=== PATIENT | female | born 1965 | race Hispanic/Latino ===

== ENCOUNTER 2017-07-05 20:27 | Inpatient (IN) | payer OTHER ==
[2017-07-05] MEDS ORDERED: FENTANYL CITR 100 MCG/2 ML ONE (21:01)
[2017-07-05] MEDS ORDERED: ONDANSETRON 4 MG/2 ML VIAL ONE (21:01)
[2017-07-05] MEDS ORDERED: PANTOPRAZOLE 40 MG INJ ONE (21:02)
[2017-07-05] MEDS ORDERED: NA CHLORIDE 0.9% 1,000 ML ONE (21:02)
[2017-07-05 21:27] LABS: Absolute Lymphocytes (CBC) 3.1 K/uL (0.7-4.9); Absolute Monocytes 0.7 K/uL (0.1-1.3); Absolute Neutrophil 7.5 K/uL (1.8-8.0); Basophils % 0.9 % (0-1.3); Eosinophils % 3.9 % (0-4.4); Hematocrit 28.9 % (36.0-45.0); Lymphocytes % 26.2 % (15.3-44.8); MCH 27.1 pg (27.0-35.0); MCV 81.8 fL (80-100); Monocytes % 5.9 % (3.3-12.3); RBC Red Blood Cell Count 3.53 M/uL (3.86-4.86)
[2017-07-05 21:31] LABS: Protime INR 1.05
[2017-07-05 21:32] LABS: Barbiturates NEGATIVE; Benzodiazepines NEGATIVE; Cocaine NEGATIVE; METHAMPHETAM NEGATIVE; Opiates NEGATIVE
--- NOTE | 2017-07-05 21:40 | RAD REPORT ---
EXAM DESCRIPTION: Ashley Single View07/05/2017 9:14 pm CLINICAL HISTORY: Abdominal pain COMPARISON: January 2017 FINDINGS: The lungs appear clear of acute infiltrate. The heart is normal size IMPRESSION: No acute abnormalities displayed
[2017-07-05 21:54] LABS: Bicarbonate 26 mEq/L (21-31); Glucose Level 108 mg/dL (65-120); Lipase 19 U/L (22-51); Potassium 3.8 mEq/L (3.6-5.0); Sodium Level 138 mEq/L (135-145)
[2017-07-05 22:00] LABS: ALT/SGPT 10 IU/L (10-60); AST/SGOT 18 IU/L (10-42); Albumin 3.8 g/dL (3.2-5.5); Alkaline Phosphatase 61 IU/L (42-121); BUN Blood Urea Nitrogen 13 mg/dL (6-20); Bilirubin Direct < 0.1 mg/dL (0-0.2); Bilirubin Total 0.2 mg/dL (0.3-1.2); Creatine Phosphokinase 62 IU/L (22-269); Magnesium 1.9 mg/dL (1.8-2.5)
[2017-07-05 22:02] LABS: CKMB Creatine Kinase MB 0.5 ng/ml (0.3-4.0)
--- NOTE | 2017-07-05 22:28 | EDPHYS ---
Physician Documentation [facility] Name: Heidi Pierre Age: 52 yrs Sex: Female : 1965 Arrival Date: 07/05/2017 Time: 20:30 Bed 3 Private MD: ED Physician Diogo Tony HPI: 07/05 20:56 This 52 yrs old Female presents to ER via Ambulatory with complaints of ochoa Abdominal Pain, Diarrhea. 20:56 The patient presents to the emergency department with diarrhea, that is continuous, ochoa abdominal pain, of the right lower quadrant and left lower quadrant. Onset: The symptoms/episode began/occurred 3 day(s) ago. Possible causes: unknown. The symptoms are aggravated by movement, pressure, The symptoms are alleviated by remaining still. Associated signs and symptoms: The patient has no apparent associated signs or symptoms. Severity of symptoms: At their worst the symptoms were mild moderate in the emergency department the symptoms are unchanged. The patient has not experienced similar symptoms in the past. 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 - Social history:: Smoking status: Patient uses tobacco products, smokes one-half pack cigarettes per day. - Family history:: not pertinent. ROS: 20:56 Constitutional: Negative for fever, chills, and weight loss, Eyes: Negative for injury, ochoa pain, redness, and discharge, ENT: Negative for injury, pain, and discharge, Neck: Negative for injury, pain, and swelling, Cardiovascular: Negative for chest pain, palpitations, and edema, Respiratory: Negative for shortness of breath, cough, wheezing, and pleuritic chest pain, Back: Negative for injury and pain, : Negative for injury, bleeding, discharge, and swelling, MS/Extremity: Negative for injury and deformity, Skin: Negative for injury, rash, and discoloration, Neuro: Negative for headache, weakness, numbness, tingling, and seizure, Psych: Negative for depression, anxiety, suicide ideation, homicidal ideation, and hallucinations, Allergy/Immunology: Negative for hives, rash, and allergies, Endocrine: Negative for neck swelling, polydipsia, polyuria, polyphagia, and marked weight changes, Hematologic/Lymphatic: Negative for swollen nodes, abnormal bleeding, and unusual bruising. 20:56 Respiratory: Positive for 20:56 Abdomen/GI: Positive for abdominal pain, diarrhea, of the right lower quadrant and left lower quadrant. Exam: 20:56 Constitutional: This is a well developed, well nourished patient who is awake, alert, ochoa and in no acute distress. Head/Face: Normocephalic, atraumatic. Eyes: Pupils equal round and reactive to light, extra-ocular motions intact. Lids and lashes normal. Conjunctiva and sclera are non-icteric and not injected. Cornea within normal limits. Periorbital areas with no swelling, redness, or edema. ENT: Nares patent. No nasal discharge, no septal abnormalities noted. Tympanic membranes are normal and external auditory canals are clear. Oropharynx with no redness, swelling, or masses, exudates, or evidence of obstruction, uvula midline. Mucous membranes moist. Neck: Trachea midline, no thyromegaly or masses palpated, and no cervical lymphadenopathy. Supple, full range of motion without nuchal rigidity, or vertebral point tenderness. No Meningismus. Chest/axilla: Normal chest wall appearance and motion. Nontender with no deformity. No lesions are appreciated. Cardiovascular: Regular rate and rhythm with a normal S1 and S2. No gallops, murmurs, or rubs. Normal PMI, no JVD. No pulse deficits. Respiratory: Lungs have equal breath sounds bilaterally, clear to auscultation and percussion. No rales, rhonchi or wheezes noted. No increased work of breathing, no retractions or nasal flaring. Back: No spinal tenderness. No costovertebral tenderness. Full range of motion. Female : Normal external genitalia. Skin: Warm, dry with normal turgor. Normal color with no rashes, no lesions, and no evidence of cellulitis. MS/ Extremity: Pulses equal, no cyanosis. Neurovascular intact. Full, normal range of motion. Neuro: Awake and alert, GCS 15, oriented to person, place, time, and situation. Cranial nerves II-XII grossly intact. Motor strength 5/5 in all extremities. Sensory grossly intact. Cerebellar exam normal. Normal gait. Psych: Awake, alert, with orientation to person, place and time. Behavior, mood, and affect are within normal limits. 20:56 Abdomen/GI: Inspection: abdomen appears normal, Bowel sounds: normal, Palpation: moderate abdominal tenderness, in the right lower quadrant and left lower quadrant, Liver: no appreciated palpable abnormalities, Hernia: not appreciated. 22:55 Abdomen/GI: Rectal exam: rectal tone normal, Stool: guaiac positive, hemorrhoid(s), are ochoa not appreciated, mass, is not appreciated, swelling, is not appreciated, tenderness, is not appreciated, the exam is chaperoned by the nurse. Vital Signs: 20:35 BP 139 / 87; Pulse 137; Resp 19; Temp 98.5; Pulse Ox 98% on R/A; Weight 56.7 kg; Height aj 5 ft. 3 in. (160.02 cm); 21:32 BP 135 / 94; Pulse 101; Resp 16; Pulse Ox 99% on R/A; tl2 22:57 BP 140 / 76; Pulse 102; Resp 17; Pulse Ox 100% ; tl1 07/06 01:01 BP 127 / 75; Pulse 105; Resp 17; Temp 98.6; Pulse Ox 99% on R/A; Pain 0/10; tl1 07/05 20:35 Body Mass Index 22.14 (56.70 kg, 160.02 cm) aj [facility]: 07/05 20:46 Patient medically screened. [facility] 20:56 Data reviewed: vital signs, nurses notes, lab test result(s), EKG, radiologic studies, [facility] CT scan, plain films. 07/05 20:55 Order name: Basic Metabolic Panel; Complete Time: 22:16 [facility] 07/05 20:55 Order name: BNP; Complete Time: 22:16 [facility] 07/05 20:55 Order name: CBC with Diff; Complete Time: 22:16 [facility] 07/05 20:55 Order name: Ckmb; Complete Time: 22:16 [facility] 07/05 20:55 Order name: CPK; Complete Time: 22:16 [facility] 07/05 20:55 Order name: LFT's; Complete Time: 22:16 [facility] 07/05 20:55 Order name: Magnesium; Complete Time: 22:16 [facility] 07/05 20:55 Order name: PT-INR; Complete Time: 22:16 [facility] 07/05 20:55 Order name: Ptt, Activated; Complete Time: 22:16 [facility] 07/05 20:55 Order name: Troponin (emerg Dept Use Only); Complete Time: 22:16 [facility] 07/05 20:55 Order name: Lipase; Complete Time: 22:16 [facility] 07/05 20:55 Order name: Type And Screen; Complete Time: 22:53 [facility] 07/05 20:56 Order name: Urine Culture [facility] 07/05 20:56 Order name: UDS; Complete Time: 22:16 [facility] 07/05 20:55 Order name: Urine Test (obtain specimen); Complete Time: 21:00 [facility] 07/05 20:55 Order name: XRAY Chest (1 view); Complete Time: 22:16 [facility] 07/05 20:55 Order name: EKG; Complete Time: 20:56 [facility] 07/05 20:55 Order name: CT Abd/Pelvis - W/Contrast [facility] 07/05 21:01 Order name: Urine Dipstick--Ancillary (enter results) [facility] 07/05 21:01 Order name: Urine --Ancillary (enter results) [facility] 07/05 22:32 Order name: CONS Physician Consult [facility] 07/05 22:32 Order name: CONS Physician Consult [facility] 07/05 20:55 Order name: Cardiac monitoring; Complete Time: 21:11 [facility] 07/05 20:55 Order name: EKG - Nurse/Tech; Complete Time: 21:25 [facility] 07/05 20:55 Order name: IV Saline Lock; Complete Time: 21:11 [facility] 07/05 20:55 Order name: Labs collected and sent; Complete Time: 21:11 [facility] 07/05 20:55 Order name: O2 Per Protocol; Complete Time: 21:12 [facility] 07/05 20:55 Order name: O2 Sat Monitoring; Complete Time: 21:12 [facility] 07/05 20:55 Order name: Urine Dipstick-Ancillary (obtain specimen); Complete Time: 21:00 [facility] Administered Medications: 21:10 Drug: NS 0.9% 1000 ml Route: IV; Rate: 1 bolus; Site: right antecubital; tl2 07/06 00:20 Follow up: IV Status: Completed infusion tl1 07/05 21:10 Drug: fentaNYL (PF) 25 mcg Route: IVP; Site: right antecubital; tl2 07/06 01:30 Follow up: Response: No adverse reaction; Marked relief of symptoms; Pain is decreased tl1 07/05 21:10 Drug: Zofran 4 mg Route: IVP; Site: right antecubital; tl2 23:31 Follow up: Response: No adverse reaction tl2 21:10 Drug: ProTONIX 40 mg Route: IVP; Site: right antecubital; tl2 23:31 Follow up: Response: No adverse reaction tl2 22:46 Drug: Flagyl 500 mg Volume: 100 ml; Route: IVPB; Rate: 200 ml/hr; Infused Over: 30 tl1 mins; Site: right antecubital; 23:30 Follow up: IV Status: Completed infusion; IV Intake: 100ml tl2 23:29 Drug: fentaNYL (PF) 25 mcg Route: IVP; Site: right antecubital; tl2 07/06 00:20 Follow up: Response: No adverse reaction; Marked relief of symptoms; Pain is decreased tl1 07/05 23:30 Drug: Cipro 400 mg Volume: 200 ml; Route: IVPB; Infused Over: 60 mins; Site: right tl2 antecubital; 07/06 01:00 Follow up: IV Status: Completed infusion tl1 01:02 Follow up: IV Status: Completed infusion tl2 07/05 23:30 Drug: Benadryl 25 mg Route: IVP; Site: right antecubital; tl2 07/06 00:21 Follow up: Response: No adverse reaction; Marked relief of symptoms tl1 Disposition: 07/05/17 22:27 Hospitalization ordered by Su Vo for Inpatient Admission. Preliminary diagnosis are Abdominal tenderness, Gastrointestinal hemorrhage, unspecified, Anemia, unspecified, Left sided colitis - sigmoid, Duodenitis. - Bed requested for Telemetry/MedSurg (Inpatient). - Status is Inpatient Admission. tl1 - Condition is Stable. - Problem is new. - Symptoms have improved. UTI on Admission? No Signatures: Dispatcher [employer] EDBobbi Moyer RN RN kl Myers, Amanda, RN RN aj Anderson, Corey, MD MD cha Lasagna, Tonya, RN RN tl1 Sanford, Sana, RN RN tl2
--- NOTE | 2017-07-05 22:28 | ER ---
Nurse's Notes [facility] Name: Heidi Pierre Age: 52 yrs Sex: Female : 1965 Arrival Date: 07/05/2017 Time: 20:30 Bed 3 Private MD: Diagnosis: Abdominal tenderness;Gastrointestinal hemorrhage, unspecified;Anemia, unspecified;Left sided colitis-sigmoid;Duodenitis Presentation: 07/05 20:31 Presenting complaint: Patient states: Watery black diarrhea since yesterday. Seen by aj PCP for epigastric pain recently. U/S, CT scan, and lab work done at [facility]. Reports taking dexamethasone Saturday night. Transition of care: patient was not received from another setting of care. Onset of symptoms was July 04, 2017. Initial Sepsis Screen: Does the patient meet any 2 criteria? No. Patient's initial sepsis screen is negative. Does the patient have a suspected source of infection? No. Patient's initial sepsis screen is negative. Care prior to arrival: None. 20:31 Method Of Arrival: Ambulatory 20:31 Acuity: ARY 3 aj Triage Assessment: 20:35 General: Appears in no apparent distress. comfortable, Behavior is calm, cooperative, aj appropriate for age. Pain: Complains of pain in epigastric area. Neuro: Level of Consciousness is awake, alert, obeys commands, Oriented to person, place, time, situation, Appropriate for age. Respiratory: Airway is patent Respiratory effort is even, unlabored, Respiratory pattern is regular, symmetrical. GI: Abdomen is flat, non-distended, Reports diarrhea, epigastric pain. Derm: Skin is intact, is healthy with good turgor, Skin is pink, warm \T\ dry. normal. 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 - Social history:: Smoking status: Patient uses tobacco products, smokes one-half pack cigarettes per day. - Family history:: not pertinent. Screenin/21 01:02 Abuse screen: Denies threats or abuse. Denies injuries from another. Nutritional tl1 screening: No deficits noted. Tuberculosis screening: No symptoms or risk factors identified. Fall Risk IV access (20 points). Assessment: 07/05 21:34 Reassessment: Patient appears in no apparent distress at this time. Patient and/or tl2 family updated on plan of care and expected duration. Pain level reassessed. Patient is alert, oriented x 3, equal unlabored respirations, skin warm/dry/pink. Pt finished contrast , CT notified. 21:34 General: Appears in no apparent distress. Behavior is calm, cooperative, appropriate tl1 for age. Pain: Complains of pain in left lower quadrant and right lower quadrant and abdomen and epigastric area Pain currently is 6 out of 10 on a pain scale. Quality of pain is described as crampy. Neuro: Level of Consciousness is awake, alert, obeys commands. Cardiovascular: Denies chest pain. Respiratory: Airway is patent Trachea midline Respiratory effort is even, unlabored, Breath sounds are clear bilaterally. GI: Abdomen is non-distended, Bowel sounds present X 4 quads. Abdomen is tender to palpation X 4 quads. Reports lower abdominal pain, upper abdominal pain, diarrhea, gaseousness, nausea. : No signs and/or symptoms were reported regarding the genitourinary system. EENT: No signs and/or symptoms were reported regarding the EENT system. Derm: No signs and/or symptoms reported regarding the dermatologic system. Vital Signs: 20:35 BP 139 / 87; Pulse 137; Resp 19; Temp 98.5; Pulse Ox 98% on R/A; Weight 56.7 kg; Height aj 5 ft. 3 in. (160.02 cm); 21:32 BP 135 / 94; Pulse 101; Resp 16; Pulse Ox 99% on R/A; tl2 22:57 BP 140 / 76; Pulse 102; Resp 17; Pulse Ox 100% ; tl1 07/06 01:01 BP 127 / 75; Pulse 105; Resp 17; Temp 98.6; Pulse Ox 99% on R/A; Pain 0/10; tl1 07/05 20:35 Body Mass Index 22.14 (56.70 kg, 160.02 cm) ED Course: 07/05 20:30 Patient arrived in ED. es 20:34 Triage completed. aj 20:35 Arm band placed on left wrist. Patient placed in an exam room. aj 20:35 Patient has correct armband on for positive identification. Placed in gown. Bed in low tl1 position. Call light in reach. Side rails up X 1. Adult w/ patient. 20:45 Diogo Tony MD is Attending Physician. ochoa 20:50 Urine collected: clean catch specimen, clear. cb2 21:05 No provider procedures requiring assistance completed. Inserted saline lock: 20 gauge tl1 in right antecubital area, using aseptic technique. Blood collected. 21:13 XRAY Chest (1 view) In Process Unspecified. EDMS 21:13 X-ray completed. Portable x-ray completed in exam room. Patient tolerated procedure kp1 well. 21:25 EKG done, by ED staff, reviewed by Diogo Tony MD. cb2 21:34 Katy Savage RN is Primary Nurse. tl1 22:26 Su Vo MD is Hospitalizing Provider. ochoa 22:[address] via wheelchair. nj 22:32 CT completed. Patient tolerated procedure well. Patient moved back from CT. nj 22:35 CT Abd/Pelvis - W/Contrast In Process Unspecified. EDMS 22:57 Served as a library information technician during rectal exam. tl1 07/06 01:06 Patient admitted, IV remains in place. tl1 Administered Medications: 07/05 21:10 Drug: NS 0.9% 1000 ml Route: IV; Rate: 1 bolus; Site: right antecubital; tl2 07/06 00:20 Follow up: IV Status: Completed infusion tl1 07/05 21:10 Drug: fentaNYL (PF) 25 mcg Route: IVP; Site: right antecubital; tl2 07/06 01:30 Follow up: Response: No adverse reaction; Marked relief of symptoms; Pain is decreased tl1 07/05 21:10 Drug: Zofran 4 mg Route: IVP; Site: right antecubital; tl2 23:31 Follow up: Response: No adverse reaction tl2 21:10 Drug: ProTONIX 40 mg Route: IVP; Site: right antecubital; tl2 23:31 Follow up: Response: No adverse reaction tl2 22:46 Drug: Flagyl 500 mg Volume: 100 ml; Route: IVPB; Rate: 200 ml/hr; Infused Over: 30 tl1 mins; Site: right antecubital; 23:30 Follow up: IV Status: Completed infusion; IV Intake: 100ml tl2 23:29 Drug: fentaNYL (PF) 25 mcg Route: IVP; Site: right antecubital; tl2 07/06 00:20 Follow up: Response: No adverse reaction; Marked relief of symptoms; Pain is decreased tl1 07/05 23:30 Drug: Cipro 400 mg Volume: 200 ml; Route: IVPB; Infused Over: 60 mins; Site: right tl2 antecubital; 07/06 01:00 Follow up: IV Status: Completed infusion tl1 01:02 Follow up: IV Status: Completed infusion tl2 07/05 23:30 Drug: Benadryl 25 mg Route: IVP; Site: right antecubital; tl2 07/06 00:21 Follow up: Response: No adverse reaction; Marked relief of symptoms tl1 Intake: 07/05 23:30 IV: 100ml; Total: 100ml. tl2 Outcome: 22:27 Decision to Hospitalize by Provider. ochoa 07/06 01:03 Admitted to Med/surg accompanied by tech, via wheelchair, with chart, Report called to tl1 Breana REYES Condition: improved Instructed on the need for admit. 01:31 Patient left the ED. tl1 Signatures: Dispatcher [employer] Megan Carlos RN RN aj Anderson, Corey, MD MD cha Salyer, Edna es Lasagna, Tonya, RN RN tl1 Sana Sanford RN RN tl2 Priyank Obrien Christian cb2 Poole, Kathy [facility] Corrections: (The following items were deleted from the chart) 07/05 20:37 20:31 Presenting complaint: Patient states: Watery black diarrhea since yesterday. Seen aj by PCP for epigastric pain recently. U/S, CT scan, and lab work done at [facility] aj
[2017-07-05] MEDS ORDERED: Ciprofloxacin 200mg IV 200 MG/100 ML IV.SOLN. IV ONE (22:42)
[2017-07-05] MEDS ORDERED: METRONIDAZOLE 500mg IVPB 500 MG/100 ML BAG IV ONE (22:42)
[2017-07-05] MEDS ORDERED: DIPHENHYDRAMINE 50 MG/ML VIAL ONE (23:28)
[2017-07-05 23:45] LABS: Urine Blood 1+ (NEG); Urine Glucose NEGATIVE (NEG); Urine Protein NEGATIVE (NEG); Urine pH 5.5 (5.0-7.0)
--- NOTE | 2017-07-06 00:19 | P.HP ---
Certification for Inpatient Patient admitted to: Inpatient With expected LOS: >2 Midnights Practitioner: I am a practitioner with admitting privileges, knowledge of patient current condition, hospital course, and medical plan of care. Services: Services provided to patient in accordance with Admission requirements found in Title 42 Section 412.3 of the Code of Federal Regulations Patient History Date of Service: 07/06/17 Reason for admission: colitis History of Present Illness: Ms Pierre is a 52 years old woman with history of colon cancer S/P colon resection followed up with 6 rounds of chemotherapy, DM II, HTN, who start about 6 weeks ago with abdominal pain. The pain is comes and go, localized on RLQ, associated with nausea but no vomiting. She came today since start having black watery diarrhea. She denied dizziness, SOB or chest pain. Lab work remarkable for elevated WBC count 11.8K, Hgb 9.6, similar to previous one 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 She has no history of fever or chills. Allergies meperidine HCl [From Demerol] Allergy (Verified 11/11/14 03:34) Unknown nitrofurantoin [From Macrobid] Allergy (Verified 11/11/14 03:34) Unknown nitrofurantoin macrocrystal [From Macrobid] Allergy (Verified 11/11/14 03:34) Unknown sulfamethoxazole [From Bactrim] Allergy (Verified 11/11/14 03:34) Unknown trimethoprim [From Bactrim] Allergy (Verified 11/11/14 03:34) Unknown Home Medications: Lisinopril [Prinivil*] 20 mg PO DAILY 11/11/14 Pravastatin [Pravachol*] 40 mg PO DAILY 11/11/14 - Past Medical/Surgical History Diabetic: Yes -: HTN -: HYPERLIPIDEMIA -: SBO -: NIDDM -: HYSTERCTOMY -: CYST REMOVED FROM BACK -: LARGE INTESTINE RESECTION - Family History Sister -: Diabetes Mother -: Hypertension - Social History Smoking Status: Current every day smoker Counseled patient to stop smoking for: less than 10 minutes Smoking therapy provided: Yes Patient receptive to therapy: No Alcohol use: No CD- Drugs: No Caffeine use: No Place of Residence: Home Review of Systems 10-point ROS is otherwise unremarkable Physical Examination - Physical Exam General: Alert, In no apparent distress HEENT: Atraumatic, PERRLA, Mucous membr. moist/pink, EOMI, Sclerae nonicteric Neck: Supple, 2+ carotid pulse no bruit, No LAD, Without JVD or thyroid abnormality Respiratory: Clear to auscultation bilaterally, Normal air movement Cardiovascular: Regular rate/rhythm, Normal S1 S2 Gastrointestinal: Normal bowel sounds, Tenderness (diffuse but mostly RLQ) Musculoskeletal: No tenderness Integumentary: No rashes Neurological: Normal speech, Normal strength at 5/5 x4 extr, Normal tone, Normal affect Lymphatics: No axilla or inguinal lymphadenopathy - Studies Laboratory Data (last 24 hrs) 07/05/17 20:58: PT 12.4, INR 1.05, APTT 25.7 07/05/17 20:58: WBC 11.8 H, Hgb 9.6 L, Hct 28.9 L, Plt Count 297 07/05/17 20:58: B-Natriuretic Peptide < 10 07/05/17 20:58: Sodium 138, Potassium 3.8, BUN 13, Creatinine 0.76, Glucose 108 , Magnesium 1.9, Total Bilirubin 0.2 L, AST 18, ALT 10, Alkaline Phosphatase 61 , Lipase 19 L Assessment and Plan - Problems (Diagnosis) (1) Colitis Current Visit: Yes Status: Acute (2) History of colon cancer Current Visit: Yes Status: Acute (3) Diabetes mellitus Current Visit: Yes Status: Acute Qualifiers: Diabetes mellitus type: type 2 Diabetes mellitus nursing home insulin use: without 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 CT abd/pelvis shows metastatic disease. Will start empiric antibiotic treatment, keep her NPO , start IV fluids, consult Dr Kilgore and Dr Osorio. - Advance Directives Does patient have a Living Will: No Does patient have a Durable POA for Healthcare: No - Code Status/Comfort Care Code Status Assessed: Yes Code Status: Full Code
[2017-07-06] MEDS: INSULIN -REGULAR HUMAN 50 UNIT/0.5 ML ML SQ SCH ×4 (01:32→17:19)
[2017-07-06] MEDS ORDERED: ONDANSETRON 4 MG/2 ML VIAL IV PRN (01:32)
[2017-07-06] MEDS ORDERED: SODIUM CHLORIDE 0.9% 10ML INJ IV PRN (01:32)
[2017-07-06 01:41] VITALS: BMI 22.1
[2017-07-06] MEDS: NA CHLORIDE 0.9% 1,000 ML IV SCH ×3 (02:58→18:55)
[2017-07-06] MEDS ORDERED: PIPER/TAZO/NS 3.375gm 3.375 GM/100 ML BAG ONE (02:59)
[2017-07-06] MEDS: PIPER/TAZO/NS 3.375gm 3.375 GM/100 ML BAG IVPB SCH ×4 (03:32→19:42)
[2017-07-06] MEDS ORDERED: FENTANYL CITR 100 MCG/2 ML IV ONE (05:42)
[2017-07-06] MEDS ORDERED: KCL 20 MEQ/100 mL IVPB 20 MEQ/100 ML BAG IV SCH (06:00)
--- NOTE | 2017-07-06 07:16 | EKG ---
Test Date: 2017-07-05 Test Time: 21:19:22 Mushroom Grower: BRAYAN MEASUREMENT RESULTS: Intervals: Rate: 101 ME: 140 QRSD: 82 QT: 354 QTc: 459 Wilson: P: 59 ME: 140 QRS: 64 T: 62 INTERPRETIVE STATEMENTS: Sinus tachycardia Otherwise normal ECG Compared to ECG 01/08/2013 14:06:28 Sinus rhythm no longer present Sinus arrhythmia no longer present Electronically Signed On 07-06-17 07:15:44 CDT by Jet Perez
[2017-07-06] MEDS ORDERED: Morphine 2 MG/2 ML SYR IV PRN (08:59)
[2017-07-06] MEDS: PANTOPRAZOLE 40 MG INJ IVP SCH (09:08)
[2017-07-06] MEDS ORDERED: GLUCAGON 1 MG/VIAL IM PRN (09:09)
[2017-07-06] MEDS ORDERED: D50W 25 GM/50 ML SYRINGE IV PRN (09:09)
--- NOTE | 2017-07-06 09:27 | RAD REPORT ---
EXAM DESCRIPTION: CT - Abdomen Pelvis W Contrast - 07/06/2017 8:57 am CLINICAL HISTORY: Abdominal pain. Colon cancer with diarrhea COMPARISON: May 2016 TECHNIQUE: Computed axial tomography of the abdomen and pelvis was obtained. 100 cc Isovue-300 is ad ministered intravenously. Oral contrast was given. A preliminary report was generated by [facility] in reviewed prior to this dictation All CT scans are performed using dose optimization technique as appropriate and may include automated exposure control or mA/KV adjustment according to patient size. FINDINGS: Two hypodense lesions are suspected within the liver with the largest measuring 5 millimeters. Retrocrural lymph node measures 4.6 by 4.1 centimeters. Smaller retrocrural lymph node is present. Ce liac axis lymph nodes are present with the largest measuring 3.4 x 2.7 centimeters. Portacaval, peria ortic, mesenteric lymph nodes are present as well. Lymph nodes compress the portal vein. 12 millimeter tumor thrombus is present within the main portal vein. Spleen, pancreas, right adrenal and kidneys are unremarkable 5 centimeter left adrenal mass is present. Hemicolectomy has been performed. A bowel obstruction is not present. A 2.2 centimeter mass abuts jejunum within the upper anterior left pelvis. A small amount of ascites is present. Two fatty structures within the fat of the lower right abdomen and upper right pelvis are mildly dimi nished in size compatible with old infarctions IMPRESSION: Marked upper abdominal lymphadenopathy. Some of the lymph nodes are necrotic. 5 centimeter left adrenal mass. 2.2 centimeter mass abutting the jejunum. 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
--- NOTE | 2017-07-06 14:22 | CON ---
Date of Consultation: 07/06/2017 Reason For Consultation: Abdominal pain. Bloody diarrhea. Brief History Of Present Illness: The patient is a 52-year-old female who presents with a 3-week his tory of intermittent bloody diarrhea and abdominal pain in the epigastric area radiating through to h er back. She states approximately 3 weeks ago she went to [facility] with complaints of abdominal pain. She has a history significant for Grove syndrome/HNPCC. She is unsure what subtype with a hi story of diagnosis of cancer in her 30s and had a partial colectomy at that time. She ultimately had a resection at that time and states that back in February of this last year she had a recurrence of colon cancer. She ultimately had another resection at that time and received rounds of chemotherapy she states ending in February as well, but she is unsure of what type of chemotherapy she was receivi ng. As stated above she had an episode of bloody diarrhea approximately 3 weeks ago, went to the [facility] ER, had a CT scan by her report and states that there were no findings at that time. She was s ent home with followup with her oncologist/surgeon at [facility]. She ultimately saw and had a w orkup initiated, which she states included additional imaging and blood work. She is unsure of the d iagnosis other than saying she has enlarged lymph nodes that may be cancer. She went to [facility] on approximately a week later for additional imaging with concerns of pancreatic cancer and was told that she simply had enlarged lymph nodes by her understanding, although none of these reports are kris ilable and the patient has admittedly poor insight into her medical history. She further states that she continued to have episodes of intermittent dark tarry stools and liquidy bloody melenic diarrhea with intermixed water. She states that she had another episode last week and went to [facility] once again and was discharged at that time without admission. She now presents to the emergency peter here with the above stated complaints and another round of bloody diarrhea, melenic stool intermixe d with watery diarrhea beginning on of this last week. She has had 3-4 episodes yesterday a nd came into the emergency room with the above-stated complaints. Past Medical History: Significant for Grove syndrome, hypertension, hyperlipidemia, small bowel obst ruction, diabetes. Surgical History: Includes hysterectomy, cyst removed from her back, 2 colectomies. She is unsure w hat portions of her colon, but thought she had no colon remaining, one when she was in her 30s and on e as of February of last year. Allergies: INCLUDE MEPERIDINE, MACROBID, BACTRIM/SULFA. Home Medications: Include Prinivil and Pravachol as well as gabapentin and Ultram. Her sister had d iabetes. Mother had hypertension. Social History: Smoking, she is a pack per day smoker. She smokes marijuana occasionally. Denies a ny other recreational drug use. Review of Systems: A 10-point review of systems other than HPI, she denies. Physical Examination: Vital Signs: At the time of examination her BMI is 22.2. Her vital signs at time of my examination, blood pressure is 104/57, pulse is 102, respiratory rate 16, temperature 98.9. General: She is awake, alert, and oriented. Psychiatric: She is appropriate and conversive but has admittedly poor insight into her medical hist ory. HEENT: She is normocephalic. Her sclerae are anicteric. Her mucous membranes are moist. Her oroph arynx is clear. Neck: Supple. No JVD. Chest: Normal expansion and excursion. Cardiovascular: Regular rate and rhythm. Pulmonary: Clear to auscultation bilaterally. Abdomen: Soft, nontender, nondistended. Well-healed scars are evident. Pelvis is stable. Skin: Warm and dry. Extremities: No clubbing, cyanosis, or edema. Laboratory Data: Reveals a white blood cell count of 11.8, hemoglobin 9.6, hematocrit of 28.9, plate let count is 297. Her PT 12.4, INR 1.05, PTT 25.7. Sodium 138, potassium 3.8, chloride 104, carbon dioxide 26, BUN 13, creatinine 0.7, glucose is 108, magnesium 1.9, total bilirubin 0.2, direct compon ent less than 0.1, AST 18, ALT 10, alkaline phosphatase 61. Her CK-MB was less than 0.03. Her lipas e is 19. Her UA was essentially negative with the exception of 1+ leukocyte esterase. camron t negative. Her drug screen was negative as well. She had a CT scan performed of the abdomen and pe lvis, which was officially read as 2 hypodense lesions suspected within the liver, the largest measur ing 5 mm, retrocrural lymph nodes measuring 4.6 x 4 cm. Small retrocrural lymph node is present. Th e celiac axis nodes are present with the largest measuring 3.4 x 2.7 cm. Portacaval periaortic mesen teric lymph nodes are present as well. Lymph node compresses the portal vein, 12 mm tumor thrombus i s present within the main portal vein. Spleen, pancreas, right adrenal, and kidneys are unremarkable . However, there is a 5 cm left adrenal mass present. Hemicolectomies have been performed. Bowel o bstruction not present. 2.2 cm mass abuts the jejunum within the upper anterior pelvis. Small amoun t of ascites present. Two fatty structures within the fat of the lower right abdomen and upper right pelvis are mildly diminished in size compared with old infarctions. Official impression is marked up per abdominal lymphadenopathy. Some of the lymph nodes are necrotic. 5 cm left adrenal mass, 2.2 cm mass abutting the jejunum. These findings may indicate metastatic disease or lymphoma. 1.2 cm fernando l venous thrombosis. Two subcentimeter hypodense lesions within the liver may represent additional n eoplasm. Assessment And Plan: This is a 52-year-old woman who comes in with a complicated history of Grove sy ndrome, who has signs and symptoms of possible neoplastic process. I am unsure if this is a recurren ce or possible lymphoma. However, given her history of bloody bowel movements, we will check her hem oglobin and do serial exams. Should she be hemodynamically stable and not require blood transfusions and have no evidence of blood-loss anemia, in the future she would likely need to be on anticoagulat ion for this portal venous thrombosis given her clinical picture. In addition, I would recommend a m etastatic workup in her immediate future. Continue medical management. I will follow along with you. Thank you for this interesting consult. KYRA/BETTY Voice ID: [id number] Report ID: [id number]
[2017-07-06] MEDS: Morphine 2 MG/2 ML SYR IV PRN ×3 (15:27→23:11)
[2017-07-06] MEDS: GABAPENTIN 300 MG PO SCH (21:00)
[2017-07-07] MEDS: PIPER/TAZO/NS 3.375gm 3.375 GM/100 ML BAG IVPB SCH ×4 (00:46→17:13)
[2017-07-07] MEDS: Morphine 2 MG/2 ML SYR IV PRN ×5 (04:13→20:02)
[2017-07-07] MEDS: NA CHLORIDE 0.9% 1,000 ML IV SCH ×2 (04:16→08:27)
[2017-07-07 05:03] LABS: Absolute Lymphocytes (CBC) 1.5 K/uL (0.7-4.9); Absolute Monocytes 0.5 K/uL (0.1-1.3); Absolute Neutrophil 4.7 K/uL (1.8-8.0); Basophils % 0.8 % (0-1.3); Eosinophils % 4.7 % (0-4.4); Hematocrit 26.1 % (36.0-45.0); Lymphocytes % 21.7 % (15.3-44.8); MPV 7.8 fL (7.6-11.3); Monocytes % 7.2 % (3.3-12.3); RBC Red Blood Cell Count 3.18 M/uL (3.86-4.86)
[2017-07-07 05:21] LABS: Potassium 3.9 mEq/L (3.6-5.0)
[2017-07-07] MEDS: INSULIN -REGULAR HUMAN 50 UNIT/0.5 ML ML SQ SCH ×4 (06:00→18:00)
[2017-07-07] MEDS ORDERED: KCL 20 MEQ/100 mL IVPB 20 MEQ/100 ML BAG IV SCH (07:00)
[2017-07-07] MEDS: PANTOPRAZOLE 40 MG INJ IVP SCH (08:23)
[2017-07-07] MEDS: D5 0.45 NS 1,000 ML IV SCH (12:22)
--- NOTE | 2017-07-07 18:10 | PN ---
Subjective: Currently, the patient is sleeping in bed. She looks comfortable. She does not have an y abdominal pain. No black stool or blood in stool. No nausea or vomiting. She continues to have l ower back pain. Objective: Vital Signs: Currently vital signs; blood pressure 122/58, respiratory rate 16, pulse 86 , temperature 97.8. General: She is fully alert, oriented x3. Does not look in any distress. HEENT: Atraumatic, normocephalic. PERRLA. Oral mucosa dry. Neck: Supple. No JVD. No carotid bruits. Chest: Clear to auscultation. Good air entry. Heart: Regular rate and rhythm. S1, S2 normal. No gallop or murmur. Abdomen: Soft, nontender. No masses. Minimal tenderness diffusely. Positive bowel sounds. Extremities: No clubbing, cyanosis, or edema. No calf tenderness. Neurologic: Grossly intact. Laboratory Data: Today showed CBC was normal except for hemoglobin at 8.6, which is relatively stabl e over the last 24 hours. BMP within normal except for a GFR of 59. CEA still pending. Assessment And Plan: 1.A 52-year-old lady with history of colon cancer ? Grove syndrome, presented with lower back pain. CAT scan of the abdomen and pelvis showed questionable abdominal adenopathy with some necrosis in th e lymph node with a renal mass. We will proceed with CT-guided biopsy of the hypodense liver lesion in a.m. I will check her CEA to evaluate for recurrence of her colon cancer. We will obtain Oncolog y consult. 2.Suspicious colitis, ruled out on CAT scan. The patient is empirically on Zosyn. I will resume he r diet with full liquid diet and if she tolerated it well, we can advance to regular. 3.Appreciate General Surgery input, but at this point, no active GI bleed, will require surgical int ervention or transfusion. H and H remained stable over the last 24 hours. We will continue to obser ve. 4.1.2 cm portal vein thrombosis versus tumor thrombosis. We will need to consider anticoagulation u lars discharge if there is no gastrointestinal bleed and if we feel safe for patient to be anticoagula patrick. Unfortunately if this tumor thrombosis, it is not likely to respond to anticoagulation, but we will obtain Hematology Oncology consult in the morning to follow up on this. 5.Back pain. Continue pain control. JESS/BETTY Voice ID: [id number] Report ID: [id number]
[2017-07-07] MEDS: GABAPENTIN 300 MG PO SCH (20:01)
[2017-07-08] MEDS: PIPER/TAZO/NS 3.375gm 3.375 GM/100 ML BAG IVPB SCH ×5 (00:10→23:42)
[2017-07-08] MEDS: Morphine 2 MG/2 ML SYR IV PRN ×6 (00:11→20:54)
[2017-07-08] MEDS: D5 0.45 NS 1,000 ML IV SCH ×4 (01:20→23:42)
[2017-07-08 05:53] LABS: Albumin 2.6 g/dL (3.2-5.5); Bilirubin Total 0.4 mg/dL (0.3-1.2); Potassium 3.7 mEq/L (3.6-5.0); Protein, Total 6.8 g/dL (6.0-8.3)
[2017-07-08] MEDS: INSULIN -REGULAR HUMAN 50 UNIT/0.5 ML ML SQ SCH ×5 (06:00→21:00)
[2017-07-08] MEDS ORDERED: KCL 20 MEQ/100 mL IVPB 20 MEQ/100 ML BAG IV SCH (07:00)
[2017-07-08] MEDS: PANTOPRAZOLE 40 MG INJ IVP SCH (08:45)
--- NOTE | 2017-07-08 09:14 | P.PN ---
Subjective Date of Service: 07/07/17 Chief Complaint: colitis Subjective: Improving (Patient only has back pain, had normal bowel movement by report without blood.) Physical Examination - Vital Signs Temperature: 98 F Blood Pressure: 105/52 Pulse: 94 Respirations: 20 Pulse Ox (%): 96 - Physical Exam General: Alert, In no apparent distress, Cooperative HEENT: Mucous membr. moist/pink Gastrointestinal: Soft and benign, No ascites, No tenderness, No masses, No rebound, No guarding - Studies Microbiology Data (last 24 hrs): 07/05/17 20:50 Clean Catch Urine [place] Count - Final >100,000 CFU/ML. 07/05/17 20:50 Clean Catch Urine - Final Escherichia Coli Assessment And Plan - Current Problems (Diagnosis) (1) Melena Current Visit: Yes Status: Acute Plan: - serial exams - continue current pain regime - incentive spirometry - continue workup for lymphadenopathy - start PO soon - will need outpatient follow up / workup - ambulate with assist - follow Dr. Kilgore recommendations - continue medical management
--- NOTE | 2017-07-08 09:15 | P.PN ---
Subjective Date of Service: 07/08/17 Chief Complaint: colitis Subjective: Improving (Continues to have back pain, otherwise no acute issues, no bowel movement today) Physical Examination - Vital Signs Temperature: 98 F Blood Pressure: 105/52 Pulse: 94 Respirations: 20 Pulse Ox (%): 96 - Physical Exam General: Alert, In no apparent distress, Cooperative Gastrointestinal: Soft and benign, Non-distended, No ascites, No tenderness, No masses, No rebound, No guarding - Studies Microbiology Data (last 24 hrs): 07/05/17 20:50 Clean Catch Urine [place] Count - Final >100,000 CFU/ML. 07/05/17 20:50 Clean Catch Urine - Final Escherichia Coli Assessment And Plan - Current Problems (Diagnosis) (1) Melena Current Visit: Yes Status: Acute Plan: - serial exams - patient getting biopsy today - continue current pain regime - incentive spirometry - continue workup for lymphadenopathy - start PO soon - will need outpatient follow up / workup - ambulate with assist - follow Dr. Kilgore recommendations - continue medical management
[2017-07-08] MEDS ORDERED: NA CHLORIDE 0.9% 1,000 ML ONE (11:01)
[2017-07-08] MEDS ORDERED: FENTANYL CITR 100 MCG/2 ML ONE (11:08)
[2017-07-08] MEDS ORDERED: MIDAZOLAM HCL 2 MG/2 ML INJ ONE (11:09)
[2017-07-08] MEDS ORDERED: FLUMAZENIL 0.1 MG/ML (5 mL VIAL) IV ONE (11:09)
--- NOTE | 2017-07-08 16:23 | RAD REPORT ---
EXAM DESCRIPTION: US - Liver Biopsy Perc - 07/08/2017 12:36 pm CLINICAL HISTORY: Abdominal mass COMPARISON: July 05, 2017 cat scan FINDINGS: The patient was pre-medicated with Versed and Fentanyl intravenously. Conscious sedation w as performed for approximately 45 minutes. A nurse was in attendance monitoring vital signs. The patient was placed supine into the CT scanner. The skin and subcutaneous tissues were anesthetize d with Lidocaine. Using an anterior approach to the right of midline the skin and subcutaneous tissues were anesthetize d with Lidocaine. A 17 gauge needle was placed through the left lobe of the liver into a mass which a buts the pancreas and celiac artery bifurcation. An 18 gauge needle was then placed through the 17 ga uge needle and three 1 centimeter core biopsies obtain. The specimens were given to pathology. The patient experienced no immediate complication. Post biopsy images do not demonstrate a hematoma. IMPRESSION: Core biopsies of an abdominal mass
--- NOTE | 2017-07-08 16:25 | P.PN ---
Subjective Date of Service: 07/08/17 Chief Complaint: colitis Pt seen and examined at bedside with RN. Chart Reviewed. Case D/w Oncology and Radiology. Pt is currently S/P liver biopsy. Doing well overall. States she is nervous about the results but overall doing well. Review of Systems 10-point ROS is otherwise unremarkable Physical Examination - Vital Signs Temperature: 98 F Blood Pressure: 113/54 Pulse: 74 Respirations: 20 Pulse Ox (%): 94 - Physical Exam General: Alert, In no apparent distress, Oriented x3 HEENT: Atraumatic, PERRLA, EOMI Neck: Supple, JVD not distended Respiratory: Clear to auscultation bilaterally, Normal air movement Cardiovascular: Regular rate/rhythm, Normal S1 S2 Gastrointestinal: Normal bowel sounds, No tenderness Musculoskeletal: No tenderness Integumentary: No rashes Neurological: Normal speech, Normal tone, Normal affect Lymphatics: No axilla or inguinal lymphadenopathy - Studies Medications List Reviewed: Yes Assessment & Plan - Problems (Diagnosis) (1) Liver lesion Current Visit: Yes Status: Acute Plan: H/O Grove Syndrome with Liver lesion on the CT and LN enlargement -S/P CT guided Liver biopsy. -F/U with path Result -Bedrest today and resume regular Activity from [place]. -F/u with Lab work CEA and CA 19-9 (2) UTI (urinary tract infection) Current Visit: Yes Status: Acute Plan: UA with UTI and Urine Culture + for ECOLI -Currently on zosyn. will switch to Levaquin now. -Total 10days of PO levaquin Qualifiers: Urinary tract infection type: acute cystitis Hematuria presence: without hematuria Qualified Code(s): N30.00 - Acute cystitis without hematuria (3) Colitis Onset Date: 07/08/17 Current Visit: Yes Status: Acute Plan: Possible Colitis on the CT scan -Ruleout. No diarrhea and Melena noted. (4) Diabetes mellitus Onset Date: 07/08/17 Current Visit: Yes Status: Chronic Qualifiers: Diabetes mellitus type: type 2 Diabetes mellitus mcc insulin use: without termite treater use Diabetes mellitus complication status: with unspecified complications Qualified Code(s): E11.8 - Type 2 diabetes mellitus with unspecified complications (5) HTN (hypertension) Onset Date: 07/08/17 Current Visit: Yes Status: Chronic Qualifiers: Hypertension type: essential hypertension Qualified Code(s): I10 - Essential (primary) hypertension (6) Grove syndrome Onset Date: 07/08/17 Current Visit: Yes Status: Chronic Plan: H/o of Grove syndrom and HNPCC -Currently with possible Reoccurance. LN enlarged and Liver lesion -Awaiting Biopsy result. -Surgery Consulted. Discharge Plan: Home Plan to discharge in: 48 Hours - Code Status/Comfort Care Code Status Assessed: Yes Critical Care: No
[2017-07-08] MEDS: GABAPENTIN 300 MG PO SCH (20:53)
[2017-07-08] MEDS ORDERED: GLUCAGON 1 MG/VIAL IM PRN (21:13)
[2017-07-08] MEDS ORDERED: D50W 25 GM/50 ML SYRINGE IV PRN (21:13)
[2017-07-08 22:44] VITALS: O2SAT 97
--- NOTE | 2017-07-09 00:43 | P.CNS ---
Date of Consult: 05/10/17 (Oncology) Reason for consult: Abdominal lymphadenopathy HPI: Patient is a 52-year-old woman who presents with a 3-week history of intermittent dark black/ bloody diarrhea and abdominal pain in the epigastric area radiating to her back. She actively follows multiple physicians and surgeons in [facility] and reports being worked up for the abdominal LN/ possible ? pancreatic neoplasm. She also reports getting work up for adrenal mass. Very unclear and vague history. She follows Dr Monk, Oncologist in [facility] (now in [place]) by whom she received chemotherapy for her recurrent colon cancer in 2016. Onc History: Reports h/o colon cancer at age 30 s/p resection followed by ? chemo RT in [address] [facility]. Apparently she had a partial hysterectomy at that time. She reports some ulcerative colon lesions in 2012 when she seems to have another resection by Dr Ashton. Again unclear history. Then in 2016, she reports having recurrent colon cancer for which she had colon resection by Dr Samuels in [facility] followed by chemotherapy by Dr Monk. She was then told that she had Grove syndrome. She was supposed to have a follow up with Dr Monk in May 2017. Symptomatically she feels much better. Abd pain has decreased and so did the diarrhea. No N/V/ fevers. No evidence of bloody stools while in hospital. She had a CT guided LB biopsy today. Denies any bleeding from any site. No brbpr or melena since admission. REVIEW OF SYSTEMS: General (Constitutional): (+) fatigue; (-)fever; (-)night sweat; (-)loss of appetite or weight; (-)heat or cold intolerance; (-)rash or itching. (-) recurrent infection; (+) history of anemia; (-)transfusion; (-) bruising. HEENT: (-) headaches, (-)vision loss; (-) hearing loss; (-)nasal congestion; (-) bleeding mouth, nose, gums; (-) swallowing difficulties; (-) hoarseness. Cardiovascular: (-) chest pain or pressure. (-) SOB, (-) orthopnea or PND. (-) palpitation or syncope. (-) leg swelling. Pulmonary: (-) cough; (-) sputum; (-) shortness of breath on exertion; (-)wheezing; (-) hemoptysis. Gastrointestinal: (-) reflux; (-) heartburn. (-)nausea, (-)vomiting or (-)hematemesis. (-)change in bowel habits. (-) rectal bleeding; (+ black stools;(+) diarrhea; (-) constipation Genitourinary: (-) pain or burning during micturition. (-) urgency, (-)frequency and (-)poor stream of urine. (-) hematuria. (-) polyuria or (-)nocturia Neurologic: (-)double vision ;(-) chronic loss of vision. (-) difficulty with speech or memory. (-) weakness ; (-)tingling in the extremities; (-)numbness of extremities; (-) difficulty walking or with balance. Musculoskeletal: no jt pains/ bone pains Psychiatric: no c/o Skin: no rash Past Medical: HTN, HLD, SBO, PSH: Hysterectomy, Cyst removal, Colon resection. Family History: DM, HTN Brother: grove syndrome+; colon cancer at age 54 Sister: grove syndrome: no cancers Brother 2 of pancreatic cancer at age 26 Her son and daughter are not tested. Denies cancers in Mom and dad. No Uterine, brain, skin, bladder, other GI cancers. Social History: Current every day smoker; Denies alcohol/ drug abuse NKDA Medications: chart reviewed. EXAM: Vitals hemodynamically stable General: Appears comfortable, lying in bed. HEENT: Atraumatic, normocephalic. PERRLA. Oral mucosa dry. Neck: Supple. No JVD. No carotid bruits. Chest: Clear to auscultation. Good air entry. Heart: Regular rate and rhythm. S1, S2 normal. No gallop or murmur. Abdomen: Soft, nontender. No masses. Minimal tenderness diffusely. Positive bowel sounds. Extremities: No clubbing, cyanosis, or edema. No calf tenderness. Neurologic: Grossly intact.AAOx3 Laboratory Data: Reviewed. Hb 9 today Cea pending Imaging: CT Abdomen: Marked upper abdominal lymphadenopathy. Some of the lymph nodes are necrotic. 5 centimeter left adrenal mass. 2.2 centimeter mass abutting the jejunum. 1.2 centimeter portal vein tumor thrombus Two subcentimeter hypodense lesions within the liver may represent additional neoplasm Problems/ recommendations: 1. Colon cancer/ Grove syndrome: CAT scan of the abdomen and pelvis showed questionable abdominal adenopathy with some necrosis in the lymph node with an adrenal mass. Based on the history, clinical presentation, imaging, likely this may be a recurrent colon cancer or a new malignancy (as part of the grove syndrome). She underwent biopsy of the abdominal LN today. Pathology pending. Prior Onc history is vague and unclear but she has an oncologist, Dr Monk, who has been treating her and also a team of physicians in [facility] working her up for the abdominal LN and adrenal mass. She wishes to follow up with them on discharge. Apparently she has a follow up with her Oncologist On July 18, 2017. She was also given the option to follow up with us on discharge if she wishes. Clinic contact details given to patient. She understands that follow up is warranted for further work up and treatment as indicated and any delay could lead to disease progression. 2. GI bleed/ ? colitis: Unclear. Abd pain s/s seem to be settled. H/H improved and stable. Management as per primary medical team/ surgery follow up. 3. 1.2 cm portal vein thrombosis: This could be a tumor thrombosis: Treatment with anticoagulation is debatable given the GI bleed with fluctuating H/H. Consider anticoagulation if H/H remains stable and no evidence of bleed. If this is tumor thrombus, it is not likely to respond to anticoagulation. Response has to be followed with treatment for the underlying malignancy. Patient understands this and will discuss with her Oncologist. 4. Discussed with house staff/ Dr Mariscal.
[2017-07-09] MEDS: Morphine 2 MG/2 ML SYR IV PRN ×2 (02:33→07:34)
[2017-07-09] MEDS: D5 0.45 NS 1,000 ML IV SCH (04:00)
[2017-07-09] MEDS: PIPER/TAZO/NS 3.375gm 3.375 GM/100 ML BAG IVPB SCH (05:56)
[2017-07-09 06:12] LABS: Potassium 3.8 mEq/L (3.6-5.0)
[2017-07-09] MEDS ORDERED: POTASSIUM CL SA 10 MEQ TAB PO ONE (07:30)
[2017-07-09] MEDS: INSULIN -REGULAR HUMAN 50 UNIT/0.5 ML ML SQ SCH (07:30)
[2017-07-09] MEDS: PANTOPRAZOLE 40 MG INJ IVP SCH (08:48)
[2017-07-09 12:02] VITALS: BP 117/56; TEMP 97.7
--- NOTE | 2017-07-09 17:39 | P.DS ---
Admission Date: 07/05/17 Discharge Date: 07/09/17 Disposition: ROUTINE DISCHARGE Discharge Condition: GOOD Reason for Admission: colitis Consultations: Oncology and Surgery Procedures: Liver Biopsy - Problems (1) Liver lesion Status: Acute (2) UTI (urinary tract infection) Status: Acute Qualifiers: Urinary tract infection type: acute cystitis Hematuria presence: without hematuria Qualified Code(s): N30.00 - Acute cystitis without hematuria (3) Colitis Onset Date: 07/08/17 Status: Acute (4) Diabetes mellitus Onset Date: 07/08/17 Status: Chronic Qualifiers: Diabetes mellitus type: type 2 Diabetes mellitus group home insulin use: without extermination supervisor use Diabetes mellitus complication status: with unspecified complications Qualified Code(s): E11.8 - Type 2 diabetes mellitus with unspecified complications (5) HTN (hypertension) Onset Date: 07/08/17 Status: Chronic Qualifiers: Hypertension type: essential hypertension Qualified Code(s): I10 - Essential (primary) hypertension (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 The pain is comes and go, localized on RLQ, associated with nausea but no vomiting. She came today since start having black watery diarrhea. She denied dizziness, SOB or chest pain. Lab work remarkable for elevated WBC count 11.8K, Hgb 9.6, similar to previous one 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 She has no history of fever or chills. Hospital Course: Overall during the hospital stay patient remained stable Patient was initially admitted to the hospital for sigmoid colon colitis. Patient had diarrhea and nausea and vomiting at that time. Patient was kept on IV antibiotics here in the hospital and had resolution of her colitis and diarrhea and nausea and vomiting. Patient also had urine culture which was positive for UTI and cultures were positive for E. coli. This patient was switched over to oral Levaquin on discharge. While here in the hospital patient had an abdominal CT done which was consistent with incidental finding of a liver lesion along with several lymph nodes that were enlarged in the abdominal cavity. 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 And patient was scheduled for a liver biopsy here in the hospital. Patient had a liver biopsy done here without any complications. The patient did well overall and no other complaints were offered. [place] report currently is pending and will be followed up by the hospitalist along with primary care provider. Patient at that time was discharged home under stable condition and was asked to follow up with with her oncologist in [place] and along with her colorectal surgeon and GI specialist. All the laboratory and pathology Report where send to the oncology team in [place] so the patient can have appropriate follow up. Patient is here in the hospital was also found to have portal vein thrombosis for which she was continued on aspirin given the remote history of GI bleeding. Patient was told to repeat her BMP in 3 days and to follow up with her GI doctor and consider more anti coagulation if her hemoglobin remained stable. Vital Signs/Physical Exam: Temp Pulse Resp BP Pulse Ox 97.7 F 93 H 14 117/56 L 97 07/09/17 12:00 07/09/17 12:00 07/09/17 12:00 07/09/17 12:00 07/09/17 12:00 General: Alert, In no apparent distress HEENT: Atraumatic, PERRLA, EOMI Neck: Supple, JVD not distended Respiratory: Clear to auscultation bilaterally, Normal air movement Cardiovascular: Regular rate/rhythm, Normal S1 S2 Gastrointestinal: Normal bowel sounds, No tenderness Musculoskeletal: No tenderness Integumentary: No rashes Neurological: Normal speech, Normal tone, Normal affect Lymphatics: No axilla or inguinal lymphadenopathy Laboratory Data at Discharge: WBC 7.1 K/uL (4.3-10.9) D 07/07/17 04:31 Hgb 8.9 g/dL (12.0-15.0) L 07/09/17 10:14 Hct 26.1 % (36.0-45.0) L 07/07/17 04:31 Plt Count 228 K/uL (152-406) D 07/07/17 04:31 PT 12.4 SECONDS (9.5-12.5) 07/05/17 20:58 INR 1.05 07/05/17 20:58 APTT 25.7 SECONDS (24.3-36.9) 07/05/17 20:58 Sodium 136 mEq/L (135-145) 07/09/17 05:17 Potassium 3.8 mEq/L (3.6-5.0) 07/09/17 05:17 BUN 7 mg/dL (6-20) 07/09/17 05:17 Creatinine 0.93 mg/dL (0.44-1.00) 07/09/17 05:17 Glucose 114 mg/dL (65-120) 07/09/17 05:17 Magnesium 1.9 mg/dL (1.8-2.5) 07/05/17 20:58 Total Bilirubin 0.4 mg/dL (0.3-1.2) 07/08/17 04:50 AST 18 IU/L (10-42) 07/08/17 04:50 ALT 12 IU/L (10-60) 07/08/17 04:50 Alkaline Phosphatase 60 IU/L (42-121) 07/08/17 04:50 B-Natriuretic Peptide < 10 pg/ml (<=100) 07/05/17 20:58 Lipase 19 U/L (22-51) L 07/05/17 20:58 Home Medications: Gabapentin [Gralise] 1 tab PO BEDTIME 07/06/17 Aspirin 81 mg PO DAILY #30 tab.chew 07/09/17 Levofloxacin [Levaquin] 500 mg PO DAILY #10 tablet 07/09/17 Tramadol HCl [Ultram] 50 mg PO DAILY #10 tablet 07/09/17 New Medications: Aspirin 81 mg PO DAILY #30 tab.chew Levofloxacin [Levaquin] 500 mg PO DAILY #10 tablet Tramadol HCl [Ultram] 50 mg PO DAILY #10 tablet Patient Discharge Instructions: 1. Please f/u with PCP in 1 week post discharge. -You will need to f/u with PCP regarding the path report from the liver biopsy done here in the hosptial. You can also call [phone] to obtain the results. 2. Please f/u with Colorectal Surgeon in 1 week post discharge. -You will need to get CBC and BMP done in 3 days post discharge. - You are prescribed ASA for your Portal Vein thrombsis. You will need to discuss with your Surgeon and GI regarding Anticoagulation for Portal Vein thrombosis after getting CBC in 3 days. MAKE SURE YOUR DISCUSS IT WITH YOUR SURGEON DURING YOUR APT ON SATURDAY. MAKE SURE TO GET YOUR LAB WORK IN 3 DAYS BEFORE YOU SEE YOUR SURGEON ON SATURDAY. 3. Please f/u with Oncologist in [place] in 1 week post discharge. -you will need to f/u with Oncologist regarding w/u of liver lesion and Pancreatic Lesion. New medication. Over the counter ASA 81mg daily. Lab Required. CBC in 3 days. Diet: Regular Activity: Ad isidro Followup: Sandra Carrillo NP [Primary Care Provider] - 1 Week (call to schedule appointment) Neymar Kilgore MD [ACTIVE - CAN ADMIT] - 1 Week (call to schedule appointment)
--- NOTE | 2017-08-16 12:53 | CON ---
Date of Consultation: 07/06/2017 Reason For Consultation: Anemia, melena, GI bleeding, liver lesion. History Of Present Illness: Ms. Cannon is a 52-year-old female, who is apparently normally treated in [facility]. She has history of colon cancer that has metastasized and she has known liver metas tasis. She has been treated with several rounds of chemotherapy. The patient comes here feeling bad for several days and also passing dark tarry stool as well as bloody diarrhea. Along with that, she also has severe epigastric pain. The epigastric pain intensity is 10/10. As a result, she came to the hospital. The pain also radiates to her back, sometimes associated with nausea and vomiting, alt cristy not all the time. In the past, she had other colon history, which is not clear. Past Medical History: Hypertension, colon cancer. Past Surgical History: Colonic surgery x2. Family History: Denies any gastrointestinal malignancy in the family. Social History: No alcohol, tobacco. Psychiatric History: None. Allergies: REVIEWED IN THE CHART. Medications: Reviewed in the chart. Review of Systems: General: In poor health and deteriorating weight loss. No fever or chills. GI: As elaborated above. Hematologic: Liver lesion, however, she did not have pain in the past. Dermatologic: No pruritus. Some bruises. Genitourinary: Occasional urinary incontinence. Neuropsychiatric: Feels depressed about the current disease. Musculoskeletal: Generalized weakness. No arthralgia, myalgia. Neuroendocrine: None. Physical Examination: General: Young female, at this time appears to be reasonably comfortable. Hemodynamic respiratory p rofile within normal range. HEENT: Atraumatic, normocephalic. No icterus, however, bilateral pallor noted. Bitemporal wasting noted. Neck: Supple. No lymphadenopathy. Trachea central in position. Chest: Clear to auscultation and percussion. Cardiovascular: Normal S1, S2. No S3, no S4. Abdomen: Soft, however, hepatomegaly is present. Mild amount of ascites present. No rebound tender ness, however, mild tenderness diffuse throughout. Bowel sounds are excellent. Neurologic: Alert and oriented x3. Intact memory, mentation, and judgment. Can move all parts of e xtremities without any other problem. Extremities: Upper and lower extremities are normal symmetrical and bilateral symmetric wasting note d. Dermatologic: Decreased skin turgor. Loss of subcutaneous pad of fat. Diagnostic Data: Reviewed and analyzed. Hemoglobin and hematocrit 9.[address] scan shows multiple liver lesions, some mild amount of ascites. Impression, Plan, And Recommendation: Ms. Cannon is a 52-year-old female with metastatic colon dis ease. She has a high possibility of GI bleeding. We need to monitor her hemoglobin and hematocrit s erially, control her pain, transfuse as needed. In the meanwhile, we will start from proton pump inh ibitor. Although, she is giving history of dark tarry stool, likely colon is a cause of bleeding. H owever, liver metastasis, also other causes of GI bleeding including upper GI and even variceal bleed ing has to be considered, although her presentation is not typical of this. Her definitive treatment will be the treatment of her cancer. She is normally a patient of [facility], the refore if she is treated in that system that will be the best way to address her. She also has past history of questionable history of colitis, which could be a reasonable cause of bl eeding. I will also be in favor of starting her on 5-aminosalicylic acid preparation. I have had a long discussion with the patient about her situation and about her considerable comorbid ities. She understands it and she also prefers to be transferred to [facility]. If the patient is still here, let me know. Otherwise, it is best for her to be taken care of in the system where she h as full workup done. JIMMY/BETTY Voice ID: [id number] Report ID: [id number]
== END 2017-07-09 12:49 | disposition home or self-care (01) | DRG 374 ==
LOC: ER 20:27 → ERHOLD 22:28 → 4TH 07-06 01:12
PROVIDERS: ADMIT Internal Medicine; ATTEND Family Medicine
PROC: 0FB23ZX Excision of Left Lobe Liver, Percutaneous Approach, Diagnostic (ICD-10-PCS; principal; 2017-07-08)
DX: C18.7 Malignant neoplasm of sigmoid colon (principal); I81 Portal vein thrombosis; K92.1 Melena; N30.00 Acute cystitis without hematuria; K52.9 Noninfective gastroenteritis and colitis, unspecified; K76.9 Liver disease, unspecified; E11.9 Type 2 diabetes mellitus without complications; I10 Essential (primary) hypertension; E11.8 Type 2 diabetes mellitus with unspecified complications; E78.5 Hyperlipidemia, unspecified; F17.200 Nicotine dependence, unspecified, uncomplicated; B96.20 Unspecified Escherichia coli [E. coli] as the cause of diseases classified elsewhere; Z85.038 Personal history of other malignant neoplasm of large intestine; Z15.09 Genetic susceptibility to other malignant neoplasm
CPT/HCPCS: 36415; 47000; 71045; 74177; 80048; 80053; 80076; 80307; 81003; 81025; 82378; 82550; 82553; 82962; 83690; 83735; 83880; 84484; 85018; 85025; 85610; 85730; 86301; 86850; 86900; 86901; 87045; 87046; 87077; 87086; 87088; 87186; 88305; 88333; 93005; 96361; 96365; 96367; 96375; 99285; C9113; J0744; J2250; J2270; J2405; J2543; J3010; J7030; Q9967

== ENCOUNTER 2017-09-28 05:06 | Emergency (ER) | payer OTHER ==
[2017-09-28] MEDS ORDERED: NA CHLORIDE 0.9% 500 ML ONE ×2 (05:29→08:47)
[2017-09-28] MEDS ORDERED: ONDANSETRON 4 MG/2 ML VIAL ONE (05:29)
[2017-09-28] MEDS ORDERED: NA CHLORIDE 0.9% 1,000 ML ONE (06:48)
[2017-09-28 07:04] LABS: Absolute Lymphocytes (CBC) 0.3 K/uL (0.7-4.9); Absolute Monocytes 0.4 K/uL (0.1-1.3); Absolute Neutrophil 9.9 K/uL (1.8-8.0); Basophils % 0.2 % (0-1.3); Eosinophils % 0.1 % (0-4.4); Hematocrit 30.5 % (36.0-45.0); Lymphocytes % 2.8 % (15.3-44.8); MCH 30.1 pg (27.0-35.0); MCV 88.8 fL (80-100); MPV 8.4 fL (7.6-11.3); Monocytes % 3.8 % (3.3-12.3); RBC Red Blood Cell Count 3.43 M/uL (3.86-4.86)
[2017-09-28 07:15] LABS: Protime INR 10.37
[2017-09-28 07:17] LABS: ALT/SGPT 28 U/L (12-78); AST/SGOT 63 U/L (15-37); Albumin 0.9 g/dL (3.4-5.0); Alkaline Phosphatase 518 U/L (45-117); BUN Blood Urea Nitrogen 73 mg/dL (7-18); Bicarbonate 18 mmol/L (21-32); Bilirubin Direct 4.9 mg/dL (0-0.2); Bilirubin Total 5.7 mg/dL (0.2-1.0); CKMB Creatine Kinase MB < 1.0 ng/mL (0.3-3.6); Creatine Phosphokinase 30 U/L (26-192); Glucose Level 63 mg/dL (74-106); Lipase 171 U/L (73-393); Magnesium 2.3 mg/dL (1.8-2.4); NT PRO-BNP 1458 pg/mL (<125); Protein, Total 5.5 g/dL (6.4-8.2); Sodium Level 132 mmol/L (136-145)
[2017-09-28 07:21] LABS: Potassium 5.7 mmol/L (3.5-5.1)
[2017-09-28 07:52] LABS: Urine Blood TRACE (NEG); Urine Glucose TRACE (NEG); Urine Protein 1+ (NEG)
[2017-09-28] MEDS ORDERED: PANTOPRAZOLE 40 MG INJ ONE ×2 (07:58→09:14)
[2017-09-28] MEDS ORDERED: D50W 25 GM/50 ML SYRINGE IV ONE (07:58)
[2017-09-28] MEDS ORDERED: SOD POLYSTYREN SUL 15 GM/60 ML UCUP ONE (07:58)
[2017-09-28] MEDS ORDERED: VITAMIN K (ADULT) 10 MG/ML ONE (07:58)
--- NOTE | 2017-09-28 08:09 | EDPHYS ---
Physician Documentation [facility] Name: Heidi Pierre Age: 52 yrs Sex: Female : 1965 Arrival Date: 09/28/2017 Time: 05:10 Bed 3 Private MD: ED Physician Diogo Tony HPI: 09/28 05:17 This 52 yrs old Female presents to ER via EMS with complaints of Breathing rn Difficulty, Back Pain. 05:17 The patient has shortness of breath at rest. Onset: The symptoms/episode began/occurred rn this morning. Duration: The symptoms are continuous. The patient's shortness of breath is aggravated by supine position, talking. Associated signs and symptoms: Pertinent positives:. 05:18 Severity of symptoms: At their worst the symptoms were moderate in the emergency rn department the symptoms are unchanged. The patient has experienced similar episodes in the past. Reports woke up with sob, abd pain, vomiting, weakness, back pain, states didn't feel this bad last night, + liver and colon cancer, reports seen in [place] just yesterday, states her doctors are in [place]. . 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 - Social history:: Smoking status: Patient uses tobacco products, denies chronic smoking, but will smoke occasionally, Patient/guardian denies using alcohol, street drugs. - Ebola Screening: : No symptoms or risks identified at this time. - Family history:: not pertinent. - Hospitalizations: : No recent hospitalization is reported. ROS: 05:18 Constitutional: Negative for fever, chills, and weight loss, Eyes: Negative for injury, rn pain, redness, and discharge, Neck: Negative for injury, pain, and swelling, Cardiovascular: Negative for chest pain, palpitations, + edema Respiratory: + sob Abdomen/GI: + abd pain and vomiting Back: + back pain, no injury MS/Extremity: Negative for injury and deformity, Skin: Negative for injury, rash, and discoloration, Neuro: + generalized weakness Exam: 05:18 Constitutional: Cachectic female with scleral icterus, holding emesis bag, generalized rn weakness Head/Face: Normocephalic, atraumatic. Eyes: + scleral icterus Cardiovascular: tachcyardic, regular, no murmur Respiratory: + mild tachypnea, + diminished bilateral breath sounds at bases with rhonchi throughout Abdomen/GI: soft, + diffuse abd tenderness MS/ Extremity: Pulses equal, no cyanosis. Neurovascular intact. Full, normal range of motion. Equal circumference. Neuro: Awake, alert, generalized weakness, moves all 4 ext. Vital Signs: 05:14 BP 78 / 52; Pulse 121; Resp 18 S; Temp 96.6(A); Pulse Ox 96% on R/A; Weight 45.81 kg bb (R); Height 5 ft. 3 in. (160.02 cm) (R); 05:45 BP 84 / 70; Pulse 112; Resp 16; Pulse Ox 100% on R/A; lp1 06:15 BP 81 / 40; Pulse 106; Resp 18; Pulse Ox 98% on R/A; lp1 06:45 BP 77 / 53; Pulse 106; Resp 19; Pulse Ox 98% on R/A; lp1 07:00 BP 77 / 50; Pulse 104; Resp 20; Pulse Ox 100% on R/A; sv 07:15 BP 84 / 56; Pulse 104; Resp 20; Pulse Ox 100% on R/A; sv 07:30 BP 87 / 55; Pulse 103; Resp 23; Pulse Ox 99% on R/A; sv 07:45 BP 91 / 57; Pulse 102; Resp 22; Pulse Ox 100% on R/A; sv 08:00 BP 83 / 56; Pulse 101; Resp 24; Temp 94.6(C); Pulse Ox 98% on R/A; sv 08:15 BP 86 / 53; Pulse 100; Resp 23; Temp 94.5(C); Pulse Ox 100% ; sv 08:31 BP 92 / 56; Pulse 103; Resp 22; Temp 94.3(C); Pulse Ox 96% on R/A; sv 08:45 BP 89 / 57; Pulse 101; Resp 24; Temp 94.2(C); Pulse Ox 97% ; sv 09:00 BP 88 / 57; Pulse 108; Resp 17; Pulse Ox 95% on 2 lpm NC; sv 09:06 BP 88 / 53; Pulse 107; Resp 23; Temp 94.1; Pulse Ox 95% on R/A; dh3 09:15 BP 81 / 51; Pulse 107; Resp 16; Pulse Ox 95% on 2 lpm NC; sv 09:30 BP 88 / 50; Pulse 105; Resp 20; Temp 94.1(C); Pulse Ox 97% 2 lpm ; sv 09:45 BP 96 / 52; Pulse 104; Resp 28; Pulse Ox 97% on 2 lpm NC; sv 05:14 Body Mass Index 17.89 (45.81 kg, 160.02 cm) bb MDM: 05:15 Patient medically screened. rn 06:47 ED course: here now, states had paracentesis yesterday at [facility] [place], [place] ann states only took off 2.5 L, normally pull off 5 L, states BP was 80s/40s when left hospital, is close to normal for her, feels like not enough fluid was taken off of her. States changed her, stool was not tarry black, no hematemesis. Threw up some root beer/dr pepper. . 07:31 Data reviewed: vital signs, nurses notes, lab test result(s), EKG, radiologic studies, [place] CT scan, plain films. 09/28 05:16 Order name: Blood Culture Adult (2) rn 09/28 05:16 Order name: BMP; Complete Time: 07:25 rn 09/28 05:16 Order name: CBC with Diff rn 09/28 05:16 Order name: Ckmb; Complete Time: 07:25 rn 09/28 05:16 Order name: CPK; Complete Time: 07:25 rn 09/28 05:16 Order name: Hepatic Function; Complete Time: 07:25 rn 09/28 05:16 Order name: Lipase; Complete Time: 07:25 rn 09/28 05:16 Order name: Magnesium; Complete Time: 07:25 rn 09/28 05:16 Order name: NT PRO-BNP; Complete Time: 07:25 rn 09/28 05:16 Order name: PT-INR; Complete Time: 07:25 rn 09/28 05:16 Order name: Ptt, Activated; Complete Time: 07:25 rn 09/28 05:16 Order name: Troponin (emerg Dept Use Only); Complete Time: 07:25 rn 09/28 05:16 Order name: Type And Screen rn 09/28 05:18 Order name: Procalcitonin; Complete Time: 08:02 rn 09/28 05:16 Order name: XRAY CXR (1 view) rn 09/28 05:18 Order name: Lactate; Complete Time: 07:25 rn 09/28 05:18 Order name: AMMONIA; Complete Time: 07:25 rn 09/28 07:06 Order name: CBC Smear Scan EDWI 09/28 07:39 Order name: Urine Dipstick--Ancillary (enter results); Complete Time: 08:02 09/28 07:42 Order name: Chest Abd Pelvis Wo Con; Complete Time: 08:44 EDWI 09/28 07:49 Order name: Bb Add On eb 09/28 07:55 Order name: Fresh Frozen Plasma EDWI 09/28 05:16 Order name: EKG; Complete Time: 05:17 rn 09/28 05:16 Order name: Cardiac monitoring; Complete Time: 05:19 rn 09/28 05:16 Order name: EKG - Nurse/Tech; Complete Time: 07:00 rn 09/28 05:16 Order name: IV Saline Lock; Complete Time: 05:19 rn 09/28 05:16 Order name: Labs collected and sent; Complete Time: 05:19 rn 09/28 05:16 Order name: O2 Per Protocol; Complete Time: 05:19 rn 09/28 05:16 Order name: O2 Sat Monitoring; Complete Time: 05:20 rn 09/28 07:29 Order name: Jenkins; Complete Time: 08:14 o[place]a Administered Medications: 05:35 Drug: Zofran 4 mg Route: IVP; Site: right antecubital; lp1 07:00 Follow up: Response: Nausea is decreased lp1 05:35 Drug: NS 0.9% 500 ml Route: IV; Rate: bolus; Site: right antecubital; lp1 07:00 Follow up: IV Status: Completed infusion; IV Intake: 500ml lp1 06:59 Drug: NS 0.9% 1000 ml Route: IV; Rate: 1000 ml; Site: right antecubital; lp1 08:41 Follow up: Response: No adverse reaction; IV Status: Completed infusion; IV Intake: sv 1000ml 08:08 Drug: Vitamin K1 10 mg Route: Sub-Q; Site: right upper arm; sv 08:40 Follow up: Response: No adverse reaction sv 08:14 Drug: Kayexalate 45 grams Route: PO; sv 08:41 Follow up: Response: No adverse reaction sv 08:14 Drug: ProTONIX 40 mg Route: IVP; Site: right antecubital; sv 08:41 Follow up: Response: No adverse reaction sv 08:14 Drug: D50W 25 ml Route: IVP; Site: right antecubital; sv 08:40 Follow up: Response: No adverse reaction sv 08:56 Drug: fentaNYL (PF) 25 mcg Route: IVP; Site: left antecubital; sv 09:07 Drug: Flagyl 500 mg Volume: 100 ml; Route: IVPB; Rate: 200 ml/hr; Infused Over: 30 sv mins; Site: left antecubital; 09:13 Drug: ProTONIX 40 mg Route: IVP; Site: left antecubital; sv 09:15 Drug: fentaNYL (PF) 25 mcg Route: IVP; Site: left antecubital; sv 09:21 Drug: vancoMYCIN 20 mg/kg Route: IVPB; Site: left antecubital; sv Point of Care Testing: Blood Glucose: 08:34 Blood Glucose: 141 mg/dL; sv Ranges: Critical Glucose Levels:Adult <50 mg/dl or >400 mg/dl <40 mg/dl or >180 mg/dl Disposition: 09/28/17 08:08 Transfer ordered to [facility]. Diagnosis are Hypotension, Type 2 diabetes mellitus, Hyperkalemia, Unspecified kidney failure, Abdominal tenderness - metastatic colon cancer, liver metastisis, free intraperitoneal air, Anemia, unspecified, Ascites, Fracture of thoracic vertebra - 12, pathologic. - Reason for transfer: Higher level of care. - Accepting physician is to [facility]. - Condition is Serious. - Problem is new. - Symptoms are unchanged. Signatures: Dispatcher [employer] Corine Martin RN RN Diogo Barillas MD MD cha Ballard, Brenda RN RN Tai Rogers MD MD rn Pena, Laura, RN RN lp1 Corrections: (The following items were deleted from the chart) 07:42 05:38 Abdomen Pelvis W Con+CT.RAD.BRZ ordered. EDMS EDMS 08:40 08:08 09/28/2017 08:08 Transfer ordered to [facility]. ochoa Diagnosis is Hypotension; Type 2 diabetes mellitus; Hyperkalemia; Unspecified kidney failure; Abdominal tenderness - metastatic colon cancer, liver metastisis; Anemia, unspecified; Ascites. Reason for transfer: Higher level of care. Accepting physician is to our community hospital. Condition is Serious. Problem is new. Symptoms are unchanged. ochoa 08:44 08:40 09/28/2017 08:08 Transfer ordered to [facility]. o[place]a Diagnosis is Hypotension; Type 2 diabetes mellitus; Hyperkalemia; Unspecified kidney failure; Abdominal tenderness - metastatic colon cancer, liver metastisis, free intraperitoneal air; Anemia, unspecified; Ascites. Reason for transfer: Higher level of care. Accepting physician is to our community hospital. Condition is Serious. Problem is new. Symptoms are unchanged. ochoa 10:09 08:44 09/28/2017 08:08 Transfer ordered to [facility]. sv Diagnosis is Hypotension; Type 2 diabetes mellitus; Hyperkalemia; Unspecified kidney failure; Abdominal tenderness - metastatic colon cancer, liver metastisis, free intraperitoneal air; Anemia, unspecified; Ascites; Fracture of thoracic vertebra - 12, pathologic. Reason for transfer: Higher level of care. Accepting physician is to our community hospital. Condition is Serious. Problem is new. Symptoms are unchanged. ochoa
--- NOTE | 2017-09-28 08:09 | ER ---
Nurse's Notes [facility] Name: Heidi Pierre Age: 52 yrs Sex: Female : 1965 Arrival Date: 09/28/2017 Time: 05:10 Bed 3 Private MD: Diagnosis: Hypotension;Type 2 diabetes mellitus;Hyperkalemia;Unspecified kidney failure;Abdominal tenderness-metastatic colon cancer, liver metastisis, free intraperitoneal air;Anemia, unspecified;Ascites;Fracture of thoracic vertebra-12, pathologic Presentation: 09/28 05:11 Presenting complaint: EMS states: they were toned out for report of pt having bb difficulty breathing and low back pain. Transition of care: patient was not received from another setting of care. Onset of symptoms was September 28, 2017. Risk Assessment: Do you want to hurt yourself or someone else? Patient reports no desire to harm self or others. Initial Sepsis Screen: Does the patient meet any 2 criteria? Systolic BP < 90 mmHg. HR > 90 bpm. Does the patient have a suspected source of infection? Yes: Acute abdominal pain. Care prior to arrival: None. 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 - Social history:: Smoking status: Patient uses tobacco products, denies chronic smoking, but will smoke occasionally, Patient/guardian denies using alcohol, street drugs. - Ebola Screening: : No symptoms or risks identified at this time. - Family history:: not pertinent. - Hospitalizations: : No recent hospitalization is reported. Screenin:09 Abuse screen: Denies threats or abuse. Denies injuries from another. Nutritional lp1 screening: No deficits noted. Tuberculosis screening: No symptoms or risk factors identified. Fall Risk Total Wyman Fall Scale indicates High Risk Score (45 or more points). Fall prevention measures have been instituted. Side Rails Up X 2 As available patient and family educated on Fall Prevention Program and Strategies. Assessment: 05:30 General: Appears ill, Behavior is quiet. Pain: Complains of pain in low back Pain lp1 currently is 8 out of 10 on a pain scale. Quality of pain is described as aching. Neuro: Level of Consciousness is awake, alert, obeys commands, Oriented to person, place, situation. Cardiovascular: Patient's skin is warm and dry. Rhythm is sinus rhythm. Respiratory: Reports cough that is productive, Airway is patent Trachea midline Respiratory effort is even, Respiratory pattern is regular, Breath sounds are diminished bilaterally. Onset: The symptoms/episode began/occurred just prior to arrival, the patient has mild shortness of breath. GI: Abdomen is non-distended, Bowel sounds present X 4 quads. Reports nausea, vomiting. : No signs and/or symptoms were reported regarding the genitourinary system. EENT: No signs and/or symptoms were reported regarding the EENT system. Derm: Skin is intact, is fragile, Skin is dry, Skin is jaundiced. Musculoskeletal: Circulation, motion, and sensation intact. 06:06 Reassessment: Patient refusing to drink oral contrast, Provider aware. lp1 07:10 General: Appears uncomfortable, ill, slender, Behavior is calm, cooperative, sv appropriate for age. Pain: Complains of pain in back Pain currently is 10 out of 10 on a pain scale. Is continuous. Neuro: Level of Consciousness is awake, alert, obeys commands, Oriented to person, place, time, situation, Moves all extremities. Cardiovascular: Heart tones S1 S2 present Patient's skin is warm and dry. Rhythm is sinus tachycardia. Respiratory: Reports shortness of breath at rest cough that is Respiratory effort is even, Respiratory pattern is symmetrical, tachypnea Breath sounds with rhonchi bilaterally. GI: Abdomen is round non-distended, Reports having a paracentesis done yesterday. EENT: Sclera/Cornea icteric. Derm: Skin is fragile, Skin is jaundiced. 08:45 Reassessment: Patient appears in no apparent distress at this time. No changes from sv previously documented assessment. Patient and/or family updated on plan of care and expected duration. Pain level reassessed. 08:50 Reassessment: 1st unit of FFP started, see paper transfusion record. sv 10:03 Reassessment: Patient appears in no apparent distress at this time. No changes from sv previously documented assessment. Patient and/or family updated on plan of care and expected duration. Pain level reassessed. 2nd unit of FFP started, see paper transfusion record. Vital Signs: 05:14 BP 78 / 52; Pulse 121; Resp 18 S; Temp 96.6(A); Pulse Ox 96% on R/A; Weight 45.81 kg bb (R); Height 5 ft. 3 in. (160.02 cm) (R); 05:45 BP 84 / 70; Pulse 112; Resp 16; Pulse Ox 100% on R/A; lp1 06:15 BP 81 / 40; Pulse 106; Resp 18; Pulse Ox 98% on R/A; lp1 06:45 BP 77 / 53; Pulse 106; Resp 19; Pulse Ox 98% on R/A; lp1 07:00 BP 77 / 50; Pulse 104; Resp 20; Pulse Ox 100% on R/A; sv 07:15 BP 84 / 56; Pulse 104; Resp 20; Pulse Ox 100% on R/A; sv 07:30 BP 87 / 55; Pulse 103; Resp 23; Pulse Ox 99% on R/A; sv 07:45 BP 91 / 57; Pulse 102; Resp 22; Pulse Ox 100% on R/A; sv 08:00 BP 83 / 56; Pulse 101; Resp 24; Temp 94.6(C); Pulse Ox 98% on R/A; sv 08:15 BP 86 / 53; Pulse 100; Resp 23; Temp 94.5(C); Pulse Ox 100% ; sv 08:31 BP 92 / 56; Pulse 103; Resp 22; Temp 94.3(C); Pulse Ox 96% on R/A; sv 08:45 BP 89 / 57; Pulse 101; Resp 24; Temp 94.2(C); Pulse Ox 97% ; sv 09:00 BP 88 / 57; Pulse 108; Resp 17; Pulse Ox 95% on 2 lpm NC; sv 09:06 BP 88 / 53; Pulse 107; Resp 23; Temp 94.1; Pulse Ox 95% on R/A; dh3 09:15 BP 81 / 51; Pulse 107; Resp 16; Pulse Ox 95% on 2 lpm NC; sv 09:30 BP 88 / 50; Pulse 105; Resp 20; Temp 94.1(C); Pulse Ox 97% 2 lpm ; sv 09:45 BP 96 / 52; Pulse 104; Resp 28; Pulse Ox 97% on 2 lpm NC; sv 05:14 Body Mass Index 17.89 (45.81 kg, 160.02 cm) bb ED Course: 05:10 Patient arrived in ED. bb 05:13 Triage completed. bb 05:14 Tai Flores MD is Attending Physician. rn 05:14 Arm band placed on Patient placed in an exam room, on a stretcher, on awake overnight monitor, bb on pulse oximetry. 05:23 Tanvi Lin RN is Primary Nurse. lp1 05:24 Inserted saline lock: 20 gauge in right antecubital area, using aseptic technique. lp1 Inserted saline lock: 22 gauge in left antecubital area, using aseptic technique. Blood collected. 05:31 X-ray completed. Portable x-ray completed in exam room. Patient tolerated procedure kp1 well. 05:45 XRAY CXR (1 view) In Process Unspecified. EDMS 06:09 Patient has correct armband on for positive identification. Placed in gown. Bed in low lp1 position. Call light in reach. panel monitor on. Pulse ox on. NIBP on. 06:26 Radiology exam delayed due to Patient is refusing oral contrast which Dr. Flores is kw1 stating is necessary for the Abdomen and Pelvis W Contrast exam he ordered for the patient. Spoke with Dr. Flores and he is going to decide what direction to take with the patient. Will check back with him shortly. 07:12 Primary Nurse role handed off by Tanvi Lin RN sv 07:12 Corine Ngo RN is Primary Nurse. sv 07:13 Attending Physician role handed off by Tai Flores MD ochoa 07:13 Diogo Tony MD is Attending Physician. ochoa 07:44 Chest Abd Pelvis Wo Con In Process Unspecified. EDMS 07:46 CT completed. Patient tolerated procedure well. Patient moved back from CT. bq 07:50 No provider procedures requiring assistance completed. Jenkins cath inserted, using sv sterile technique, 16 Fr., by me, balloon inflated, to gravity drainage, urine specimen collected. other Criticore returned zora urine. Patient tolerated well. 09:26 Bb Add On Sent. sv 10:10 Patient transferred, IV remains in place. intact. sv Administered Medications: 05:35 Drug: Zofran 4 mg Route: IVP; Site: right antecubital; lp1 07:00 Follow up: Response: Nausea is decreased lp1 05:35 Drug: NS 0.9% 500 ml Route: IV; Rate: bolus; Site: right antecubital; lp1 07:00 Follow up: IV Status: Completed infusion; IV Intake: 500ml lp1 06:59 Drug: NS 0.9% 1000 ml Route: IV; Rate: 1000 ml; Site: right antecubital; lp1 08:41 Follow up: Response: No adverse reaction; IV Status: Completed infusion; IV Intake: sv 1000ml 08:08 Drug: Vitamin K1 10 mg Route: Sub-Q; Site: right upper arm; sv 08:40 Follow up: Response: No adverse reaction sv 08:14 Drug: Kayexalate 45 grams Route: PO; sv 08:41 Follow up: Response: No adverse reaction sv 08:14 Drug: ProTONIX 40 mg Route: IVP; Site: right antecubital; sv 08:41 Follow up: Response: No adverse reaction sv 08:14 Drug: D50W 25 ml Route: IVP; Site: right antecubital; sv 08:40 Follow up: Response: No adverse reaction sv 08:56 Drug: fentaNYL (PF) 25 mcg Route: IVP; Site: left antecubital; sv 09:07 Drug: Flagyl 500 mg Volume: 100 ml; Route: IVPB; Rate: 200 ml/hr; Infused Over: 30 sv mins; Site: left antecubital; 09:13 Drug: ProTONIX 40 mg Route: IVP; Site: left antecubital; sv 09:15 Drug: fentaNYL (PF) 25 mcg Route: IVP; Site: left antecubital; sv 09:21 Drug: vancoMYCIN 20 mg/kg Route: IVPB; Site: left antecubital; sv Point of Care Testing: Blood Glucose: 08:34 Blood Glucose: 141 mg/dL; sv Ranges: Intake: 07:00 IV: 500ml; Total: 500ml. lp1 08:41 IV: 1000ml; Total: 1500ml. sv Outcome: 08:08 ER care complete, transfer ordered by [facility] 09:00 Transferred by ground EMS to [facility], Transfer form completed. X-rays sent sv w/ patient. Note: Report given to August REYES 09:00 Condition: stable 09:00 Instructed on the need for transfer. 10:09 Patient left the ED. sv Signatures: Dispatcher [employer] Corine Martin RN RN sv Anderson, Corey, MD MD cha Quilty, Betty bq Ballard, Brenda, RN RN bb Tai Flores MD MD rn Pena, Laura, RN RN lp1 Christine Michael [facility] Kathrine Hoff [facility] Bobbi Parrish [facility] Corrections: (The following items were deleted from the chart) 06:07 06:06 Reassessment: Patient refusing to drink oral contrast lp1 lp1 06:10 05:30 Respiratory: Reports cough that is productive, Airway is patent Trachea midline lp1 Respiratory effort is even, Respiratory pattern is regular, Breath sounds are diminished bilaterally. lp1
[2017-09-28] MEDS ORDERED: VANCOMYCIN 750 MG in NA CHLORIDE 0.9% 150 ML IVPB ONE (08:30)
--- NOTE | 2017-09-28 08:42 | RAD REPORT ---
EXAM DESCRIPTION: CT - Chest Abd Pelvis Wo Con - 09/28/2017 7:44 am CLINICAL HISTORY: Chest pain, abdominal pain, back pain, difficulty breathing, history of colon canc er and prior small bowel obstruction COMPARISON: CT imaging June 2017, CT imaging January 2017 TECHNIQUE: During dynamic enhancement using 100 milliliters nonionic IV contrast, axial 5 millimeter thick images of the chest, abdomen and pelvis were obtained. Biphasic technique was utilized through the abdomen. No oral contrast was administered. All CT scans are performed using dose optimization technique as appropriate and may include automated exposure control or mA/KV adjustment according to patient size. FINDINGS: At the left base of the neck adjacent to a discrete thyroid gland there is a 3.8 centimete r lobulated soft tissue mass new from January 2017 imaging. This has mass effect on the esophagus an d mild mass effect on the trachea with right deviation. Subcarinal adenopathy of 2.5 cm noted. Numerous alveolar opacities are present in the each lung base along with left lung base atelectasis. Numerous alveolar opacities are present in the right upper and right middle lobe. No pneumothorax. Th ere is trace left pleural effusion. No chest wall mass or abnormal axillary lymphadenopathy seen. No gross hilar mass lesions seen. No significant cardiac finding. Aorta and pulmonary arteries are kwan sly normal for a noncontrast study. The liver is abnormal. There are several poorly demarcated low-density mass lesions largest 2.5 cm la teral mid right lobe. No splenomegaly or focal splenic abnormality. Pancreas is grossly normal but di fficult to fully evaluate in the absence of oral and IV contrast. Gallbladder is distended. Hyperdens ity within the lumen may be contrast from a prior study. Dense sludge is possible. No hydronephrosis. No suspicious renal finding. Function cannot be assessed. Right adrenal gland is n ormal. A normal left adrenal gland is not clearly defined. There is supra renal mass are adenopathy p resent. This is similar to the June comparison. There is an overall peripancreatic mass and nodulari ty pattern that is similar or slightly more pronounced than seen on prior imaging. The comparison was a biopsy study and therefore was not a specific protocol exam to allow all accurate staging were com parison. Urinary bladder is contracted around a Jenkins catheter. Stomach is distended but not dilated. Colon anastomotic site shows no suspicious finding. Patient has a large volume of ascites new from the June examination. Numerous mesenteric lymph nodes are presen t. Free intraperitoneal air is present. The source for the free air is not definitive. It is unknown if the patient had any procedure. There is subcutaneous air in the periumbilical region. This may be related to a recent procedure or hernia defect. Bone destructive metastatic disease is present involving much of the anterior and right side T12 body . There is a slight loss in height. Posterior wall height is preserved. L1 and L3 metastatic disease is also evident without compression. No additional definitive vertebral body metastatic disease no shaun ne scan may show additional activity. Findings telephoned to the referring physician 8:34 a.m.. IMPRESSION: Large 3.8 centimeter mass left base of the neck very likely metastatic disease. Numerous alveolar opacities in the lower lobes and right upper lobe. Infectious etiology can have thi s appearance. However given the additional findings detailed in this study, alveolar spread of carcin sridhar would be an additional etiology. Abnormal subcarinal lymph node. Carcinomatosis pattern with large volume of ascites and numerous mesenteric lymph nodes. Free intraperitoneal air. There is a small amount of subcutaneous air in the periumbilical region. No history of recent procedure detailed. Source of the free air is not defined. Bony metastatic disease including bone destruction and minimal collapse of the T12 body. Posterior wa ll height is preserved. Canal encroachment is not seen. Metastatic disease to the liver new from January.
--- NOTE | 2017-09-28 08:47 | RAD REPORT ---
EXAM DESCRIPTION: RAD - Chest Single View - 09/28/2017 7:09 am CLINICAL HISTORY: Chest pain, abdominal pain, shortness of breath COMPARISON: July 05, 2017 TECHNIQUE: AP portable chest image was obtained 0529 hours . FINDINGS: Lung volumes are low. No large mass or consolidations seen. Lung base atelectasis is prese nt more so in the posterior gutters. These areas are only partially imaged. Scattered alveolar opacit ies are present. No large mass or consolidation. Trachea is midline. No vascular engorgement. Right s ubclavian Port-A-Cath is in place. No measurable pleural effusion and no pneumothorax. No gross bony abnormality seen. No acute aortic findings suspected. Stomach is distended. Ascites is suspected and there is some questionable free air below the left hem idiaphragm. IMPRESSION: Low volume chest film showing patchy alveolar opacities. Findings could represent a mild infectious pneumonitis. Given findings detailed on CT imaging. 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 Significant upper abdominal findings are present detailed on the separate CT study.
[2017-09-28 08:53] LABS: Platelet Estimate ADEQ; Urine White Blood Cell Casts OK
[2017-09-28 08:54] LABS: Anisocytosis 2+; Blood Morphology Comment NOTED (NOT SEEN)
[2017-09-28] MEDS ORDERED: FENTANYL CITR 100 MCG/2 ML ONE (08:55)
[2017-09-28] MEDS ORDERED: METRONIDAZOLE 500mg IVPB 500 MG/100 ML BAG IV ONE (08:55)
[2017-09-28 10:25] VITALS: BP 88/53; TEMP 94.1; O2SAT 95
--- NOTE | 2017-09-29 09:33 | EKG ---
Test Date: 2017-09-28 Test Time: 06:51:05 [employer] Estate [employer] Manager: JAIDEN MEASUREMENT RESULTS: Intervals: Rate: 107 MA: 112 QRSD: 88 QT: 326 QTc: 435 [place]: P: 46 MA: 112 QRS: 46 T: 43 INTERPRETIVE STATEMENTS: Sinus tachycardia Otherwise normal ECG Compared to ECG 07/05/2017 21:19:22 No significant changes Electronically Signed On 09-29-17 09:29:09 CDT by Todd Craig
== END 2017-09-28 10:09 | disposition short-term general hospital (02) ==
LOC: ER 05:06
PROC: 30233K1 Transfusion of Nonautologous Frozen Plasma into Peripheral Vein, Percutaneous Approach (ICD-10-PCS; principal; 2017-09-28)
PROC: 30233N1 Transfusion of Nonautologous Red Blood Cells into Peripheral Vein, Percutaneous Approach (ICD-10-PCS; 2017-09-28)
DX: D64.9 Anemia, unspecified (principal); S22.088A Other fracture of T11-T12 vertebra, initial encounter for closed fracture; I95.9 Hypotension, unspecified; E87.5 Hyperkalemia; R18.8 Other ascites; N19 Unspecified kidney failure; E11.9 Type 2 diabetes mellitus without complications; R10.819 Abdominal tenderness, unspecified site; I10 Essential (primary) hypertension; Z72.0 Tobacco use; Z85.05 Personal history of malignant neoplasm of liver; Z85.038 Personal history of other malignant neoplasm of large intestine; Z88.1 Allergy status to other antibiotic agents; Z88.5 Allergy status to narcotic agent; Z88.8 Allergy status to other drugs, medicaments and biological substances
CPT/HCPCS: 36415; 51702; 71045; 71250; 74176; 80048; 80076; 81003; 82140; 82550; 82553; 82962; 83605; 83690; 83735; 83880; 84145; 84484; 85025; 85610; 85730; 86850; 86900; 86901; 87040; 93005; 96372; 99285; C9113; J2405; J3010; J3430; J7030; P9059